=== PATIENT | male | born 1965 | race Caucasian/White ===

== ENCOUNTER 2017-03-26 12:25 | Day surgery (SDC) | payer OTHER ==
[2017-03-26] VITALS (12 sets, daily range): BP systolic 132–144; BP diastolic 70–93; PULSE 64–76; RESP 12–23; Ht 182.9 cm; Wt 92.0 kg
[~2017-03-26] VITALS: Ht 182.9 cm; Wt 92.0 kg
[~2017-03-26 12:25] MED LIST: CEFAZOLIN 2 GM/50 ML (PMX) 50 ML IVPB SCH; SOD CHLORIDE 0.9% 1,000 ML IV SCH
[2017-03-26] MEDS ORDERED: PROPOFOL 20 ML ONE (14:34)
[2017-03-26] MEDS ORDERED: ROCURONIUM 50 MG INJ ONE (14:34)
[2017-03-26] MEDS ORDERED: LIDOCAINE 2% (SDV) 5 ML INJ ONE (14:34)
[2017-03-26] MEDS ORDERED: FENTAnyl 50 MCG/ML VIAL ONE ×2 (14:36→15:49)
[2017-03-26] MEDS ORDERED: POLYMYXIN/BACITRACIN 1L IRRIG ONE (14:37)
[2017-03-26] MEDS ORDERED: BUPIVACAINE 0.25%/EPI (SDV) 30 ML INJ ONE (14:49)
[2017-03-26] MEDS ORDERED: CEFAZOLIN 1 GM INJ ONE (14:51)
[2017-03-26] MEDS ORDERED: LABETALOL HCL 20MG INJ IV PRN (15:00)
[2017-03-26] MEDS ORDERED: hydrALAzine 20 MG INJ IV PRN (15:00)
[2017-03-26] MEDS ORDERED: MEPERIDINE 25 MG INJ IV PRN (15:00)
[2017-03-26] MEDS ORDERED: EPHEDrine SULFATE 50 MG/5 ML SYG IV PRN (15:00)
[2017-03-26] MEDS ORDERED: OXYCODONE/ACETAMINOPHEN (5/325) TAB PO PRN ×2 (15:00)
[2017-03-26] MEDS ORDERED: HYDROmorphONE (0.2 MG/ML) 10ML SYG IV PRN ×3 (15:00)
[2017-03-26] MEDS ORDERED: DIPHENHYDRAMINE 50 MG INJ IV PRN (15:00)
[2017-03-26] MEDS ORDERED: ONDANSETRON 4 MG INJ IV PRN ×2 (15:00→17:00)
[2017-03-26] MEDS ORDERED: FENTAnyl 50 MCG/ML VIAL IV PRN ×2 (15:00)
[2017-03-26] MEDS ORDERED: TRIMETHOBENZAMIDE 100 MG/ML VIAL IM PRN (15:00)
[2017-03-26] MEDS ORDERED: METOCLOPRAMIDE 10 MG INJ IV PRN (15:00)
[2017-03-26] MEDS ORDERED: DEXAMETHASONE 4 MG/ML 1 ML INJ ONE (16:35)
[2017-03-26] MEDS ORDERED: ONDANSETRON 4 MG INJ ONE (16:35)
[2017-03-26] MEDS ORDERED: morphine 4 MG/ML VIAL IV PRN (17:00)
[2017-03-26] MEDS ORDERED: IBUPROFEN 600 MG TAB PO PRN (17:00)
[2017-03-26] MEDS ORDERED: KETOROLAC 30 MG INJ IV PRN (17:00)
[2017-03-26] MEDS ORDERED: HYDROCODONE/APAP (5/325) TAB PO PRN ×2 (17:00)
[2017-03-26] MEDS: FENTAnyl 50 MCG/ML VIAL IV PRN ×2 (17:00→17:07)
--- NOTE | 2017-03-26 17:04 | OPR ---
Date/Time of Note Date/Time of Note DATE: 03/26/17 TIME: 16:51 Operative Report Procedure Date: Mar 26, 2017 Preoperative Diagnosis Right inguinal hernia without obstruction or gangrene Postoperative Diagnosis Right inguinal hernia without obstruction or gangrene Operation Performed 1. Open right inguinal hernia repair with mesh 2. Implantation of biological extracellular matrix 3. Right ilioinguinal nerve block Surgeon: DAVID TURPIN MD Anesthesia: general Anesthesiologist: ORLY HORVATH Estimated Blood Loss: minimal Specimens Hernia sac Complications: None Pt Condition Post Procedure: stable Disposition: PACU Indications The patient is a 51-year-old male who presented to the office complaining of a painful right groin bulge. He was diagnosed on clinical exam as having a right inguinal hernia. The patient was scheduled right inguinal hernia repair with mesh; possible open to prevent sequelae of hernia disease which include, but are not limited to: Incarceration and strangulation. All risks and benefits of the procedure including but not limited to: Wound infection, excessive bleeding , postoperative seroma/hematoma formation, nerve injury which may be temporary versus permanent, injury to the reproductive organs including the vas deferens and the testicle which may lead to testicular atrophy, hernia recurrence, chronic pain, etc. were all explained to the patient full detail. The patient fully understood and wished to proceed with the procedure. Informed consent was therefore obtained. Operative\Procedure Findings Large right indirect inguinal hernia containing fat. Weakness in the floor of the inguinal canal. Procedure Description The patient was brought to the operating room and placed supine on the operating table. Bilateral sequential compression devices were placed on both lower extremities. A dose of broad-spectrum perioperative intravenous antibiotics was given. After the induction of smooth general anesthesia the patient's abdomen and bilateral groins were prepped and draped in standard surgical fashion. After performance of the surgical timeout 0.25% Marcaine with epinephrine was injected over the area of the incision. Incision was then made using a 15 blade scalpel from the right pubic tubercle towards the right anterior superior iliac spine. Incision was carried down through the skin into the subcutaneous tissues using Bovie electrocautery. Bhupinder's fascia was incised and the aponeurosis of the external oblique muscle was reached. The aponeurosis of the external oblique muscle was then incised in the direction of its fibers using a 15 blade scalpel and further opened using Metzenbaum scissors. The ilioinguinal nerve was identified on top of the spermatic cord. It was isolated and preserved throughout the entirety of the procedure. Using blunt dissection the spermatic cord was then mobilized off of the floor of the inguinal canal and encircled using a [place] drain. Cremasteric muscles were incised and dissection of the cord was begun. A large indirect hernia sac was identified. It was densely adhered to the cord structures including the vas deferens. It was dissected off of the cord. Hernia sac contained fat. Dissection was continued towards the neck of the hernia. Large sac was then transected at its base and suture ligated using a 0 Vicryl suture and passed off the field as specimen. The remaining sac was then reduced back into the intra-abdominal cavity. Weakness in the floor of the inguinal canal and transversalis fascia was also identified. The indirect hernia defect was then repaired using a medium sized Ethicon ultra pro plug. The plug was sutured in place using interrupted 3-0 Vicryl sutures. To aid in tissue regeneration a 2 x 4 cm piece of epi-fix biological matrix was placed in the medial aspect of the inguinal canal over the pubic tubercle. An onlay mesh was then used to reconstruct the floor of the inguinal canal. It was secured in place using interrupted 2-0 Novafil sutures. Both the plug and the mesh were soaked in antibiotic irrigation prior to placement in the field. A slit was made in the mesh to accommodate the spermatic cord. With the repair complete was examined and noted to be hemostatic in tension-free. The wound cavity was then irrigated with more antibiotic containing irrigation. Spermatic cord was then placed back into its anatomical position. The aponeurosis of the external oblique muscle was then reapproximated using a running 3-0 Vicryl suture. Incision was then closed in layers using a running 3-0 Vicryl suture for the Bhupinder's fascia. The skin was then reapproximated using 4-0 Monocryl suture in a running subcuticular fashion. Attention was then turned to the right ilioinguinal nerve block. 10 cc of 0.25% Marcaine with epinephrine was then injected in a radial fashion approximately 2 fingerbreadths medial and inferior to the right anterior superior iliac spine. Further local anesthesia was then injected around the incision site. Incision was cleaned and Dermabond was applied. The patient was awoken from anesthesia and transferred to the recovery room in stable condition. Both testicles were palpated and noted to be in their anatomical positions at the end of the case. All counts were correct at the end of the case 2. DAVID TURPIN MD Mar 26, 2017 17:03
== END 2017-03-26 18:15 | disposition home or self-care (01) ==
LOC: SDS 12:25
PROVIDERS: ATTEND Surgery
DX: K40.90 Unilateral inguinal hernia, without obstruction or gangrene, not specified as recurrent (principal)
CPT/HCPCS: 49505; 88302; C1781; J0690; J1100; J2405; J3010; Q4131; Z7512; Z7610